=== PATIENT | male | born 1995 | race Hispanic/Latino ===

== ENCOUNTER 2019-12-27 14:59 | Emergency (ER) | payer MEDICAID, OTHER ==
[2019-12-27 15:44] LABS: BASOPHILS % (AUTO) 0.4 % (0.0-5.0); EOSINOPHILS % (AUTO) 3.1 % (0.0-8.0); HEMATOCRIT 44.1 % (42-54); LYMPHOCYTES % (AUTO) 26.7 % (21.0-51.0); MEAN CORPUSCULAR HEMOGLOBIN 31.6 pg (27.0-33.0); MEAN CORPUSCULAR HGB CONC 33.8 g/dL (32.0-36.0); MEAN CORPUSCULAR VOLUME 93.4 fL (79-99); MONOCYTES % (AUTO) 8.4 % (3.0-13.0); NEUTROPHILS % (AUTO) 61.2 % (40.0-77.0); PLATELET COUNT (AUTO) 348 K/uL (130-400); RED BLOOD CELL COUNT(AUTO) 4.72 MIL/uL (4.50-6.20); RED CELL DISTRIBUTION WIDTH 12.2 % (11.0-15.5); WHITE BLOOD COUNT (AUTO) 9.5 K/uL (4.8-10.8)
[2019-12-27 15:50] LABS: APPEARANCE,URINE Clear (CLEAR); BILIRUBIN,URINE Negative (NEGATIVE); COLOR,URINE Yellow (YELLOW); GLUCOSE, URINE (UA) Negative (NEGATIVE); KETONES,URINE Negative (NEGATIVE); LEUKOCYTE ESTERASE ,URINE Trace (NEGATIVE); NITRATE,URINE Negative (NEGATIVE); OCCULT BLOOD,URINE Negative (NEGATIVE); PH,URINE 6.5 (5.0-8.0); PROTEIN,URINE Negative (NEGATIVE)
[2019-12-27 15:56] LABS: CREATININE 0.9 mg/dL (0.5-1.5); POTASSIUM 3.6 mmol/L (3.5-5.1)
[2019-12-27 16:00] LABS: ALBUMIN 4.1 g/dL (3.5-5.0); BILIRUBIN,TOTAL 0.5 mg/dL (0.2-1.0); TOTAL PROTEIN, SERUM 8.1 g/dL (6.0-8.3)
[2019-12-27 16:10] LABS: BACTERIA,URINE Rare /HPF (None Seen); RBC,URINE None Seen /HPF (0-1); SQUAMOUS EPITHELIAL CELL,UR 0-2 /HPF (0-2); WBC,URINE 0-1 /HPF (0-1)
[2019-12-27 16:11] LABS: AMPHET/METH SCREEN,URINE NEGATIVE (NEGATIVE); BARBITURATE SCREEN, URINE NEGATIVE (NEGATIVE); BENZODIAZEPINES SCREEN,URINE NEGATIVE (NEGATIVE); CANNABINOID SCREEN,URINE POSITIVE (NEGATIVE); COCAINE SCREEN,URINE NEGATIVE (NEGATIVE); OPIATE SCREEN,URINE NEGATIVE (NEGATIVE); PHENCYCLIDINE SCREEN,URINE NEGATIVE (NEGATIVE)
== END 2019-12-27 18:27 | disposition home or self-care (01) ==
LOC: EDH 14:59
DX: R10.12 Left upper quadrant pain (principal); Z72.0 Tobacco use
CPT/HCPCS: 36415; 71045; 76705; 80053; 80305; 81001; 83690; 85025

== ENCOUNTER 2020-10-31 12:48 | Emergency (ER) | payer SELFPAY ==
[~2020-10-31] VITALS: Ht 180.3 cm; Wt 145.1 kg
[2020-10-31 15:49] VITALS: BP 120/65
== END 2020-10-31 16:53 | disposition home or self-care (01) ==
LOC: EDH 12:48
DX: R19.5 Other fecal abnormalities (principal); R19.7 Diarrhea, unspecified
CPT/HCPCS: 82270

== ENCOUNTER 2023-08-31 00:53 | Emergency (ER) | payer OTHER ==
[~2023-08-31] VITALS: Ht 180.3 cm; Wt 154.2 kg
[2023-08-31] MEDS: METOCLOPRAMIDE 10 MG/2 ML VIAL IVP ONE (02:23)
[2023-08-31] MEDS: DiphenhydrAMINE HCL 50 MG/ML VIAL IV ONE (02:23)
[2023-08-31] MEDS: KETOROLAC 30MG VIAL (30MG/ML) IVP ONE (02:24)
[2023-08-31] MEDS ORDERED: PHARMACY COMMUNICATION MISC SCH (03:00)
[2023-08-31] MEDS: DEXAMETHASONE SOD PHOSPHATE 4 MG/ML 1ML VIAL IVP ONE (03:15)
[2023-08-31 04:08] VITALS: BP 134/62; PULSE 72; RESP 20; O2SAT 96
== END 2023-08-31 04:08 | disposition home or self-care (01) ==
LOC: EDH 00:53
DX: G43.909 Migraine, unspecified, not intractable, without status migrainosus (principal)
CPT/HCPCS: 99285; 96374; 96375; 70450; J1100; J1200; J1885; J2765